=== PATIENT | male | born 2000 | race Caucasian/White ===

== ENCOUNTER 2024-01-01 04:21 | Emergency (ER) | payer OTHER, SELFPAY ==
[2024-01-01 04:30] VITALS: BP 125/73; PULSE 96; RESP 16; TEMP 36.9; O2SAT 97
[2024-01-01] MEDS: HYDROcodone/acetaminophen (*CRX) 5-325 MG TABLET 1 TAB PO (05:15)
--- NOTE | 2024-01-01 05:39 | PC.NURSE ---
Irrigated pt left ear with no success. VORB per EDP Livan to do it one more time in 10 minnutes.
[2024-01-01 05:58] LABS: Influenza A QL RT-PCR Negative (Negative); Influenza B QL RT-PCR Negative (Negative); RSV RNA, RT-PCR Negative (Negative); SARS-CoV-2 RNA PCR Negative (Negative)
--- NOTE | 2024-01-01 06:20 | ED.EAR ---
HPI - Ear Problem General Chief complaint: Ear Stated complaint: bilateral ear pain Time Seen by Provider: 01/01/24 04:45 History of Present Illness HPI Narrative: Patient is a 23-year-old male who presents ER with left ear pain. Worsening over last couple of days. Difficulty hearing. Associated with sinus congestion. Has pain in his neck on left side as well. No fevers or chills or sweats. Related Data Allergies Allergy/AdvReac Type Severity Reaction Status Date / Time No Known Allergies Allergy Verified 01/01/24 05:18 Review of Systems Constitutional: Constitutional: Reports no additional constitutional complaints ENT: Denies dizziness, Reports nasal congestion and Reports sore throat Cardiovascular: Cardiovascular: Reports no additional cardiovascular complaints Neurologic: Reports system reviewed and no additional complaints, except as documented PMFSH Past Medical History Medical History (Updated 01/01/24 @ 06:45 by Omar Licona MD) Healthy adult male Surgical History Surgical History (Updated 01/01/24 @ 06:39 by Omar Licona MD) No pertinent past surgical history Exam Narrative: GENERAL: Well-appearing, well-nourished, and in no acute distress. HEAD: Normocephalic, atraumatic. ENT: Mucous membranes moist. Normal right ear canal and tympanic membrane. Left ear canal with cerumen impaction. After removal impaction TM is intact. Normal appearing posterior oropharynx. NECK: Supple. CHEST: Clear to auscultation. No respiratory distress. HEART: Regular rate and rhythm. Normal peripheral pulses. EXTREMITIES: Normal range of motion. No edema. NEURO: Alert and oriented x3. PSYCH: Normal mood and affect. Course Course Emergency Course: Tolerated cerumen removal. D/c. Vital Signs Vital signs: Vital Signs Temperature 98.4 F 01/01/24 04:30 Pulse Rate 96 01/01/24 04:30 Respiratory Rate 16 01/01/24 04:30 Blood Pressure 125/73 01/01/24 04:30 Pulse Oximetry 97 01/01/24 04:30 Temperature 98.4 F 01/01/24 04:30 Pulse Rate 96 01/01/24 04:30 Respiratory Rate 16 01/01/24 04:30 Blood Pressure 125/73 01/01/24 04:30 Pulse Oximetry 97 01/01/24 04:30 Procedures FB Removal Ear Foreign Body #1: Foreign Body Removal Date: 01/01/24 Foreign Body Removal Time: 06:24 Location: ear canal (L) Foreign Body Suspected: other (Cerumen) TM intact pre-procedure: unable to visualize Foreign Body Removal Technique: irrigation Tympanic Membrane Intact Post Procedure: Yes Patient Tolerated Procedure: well Complications: none Medical Decision Making Vital Signs Vital Signs: Vital Signs Temperature 98.4 F 01/01/24 04:30 Pulse Rate 96 01/01/24 04:30 Respiratory Rate 16 01/01/24 04:30 Blood Pressure 125/73 01/01/24 04:30 Pulse Oximetry 97 01/01/24 04:30 Temperature 98.4 F 01/01/24 04:30 Pulse Rate 96 01/01/24 04:30 Respiratory Rate 16 01/01/24 04:30 Blood Pressure 125/73 01/01/24 04:30 Pulse Oximetry 97 01/01/24 04:30 Lab Data Labs: Lab Results 01/01/24 Range/Units 05:16 Influenza A (RT-PCR) Negative (Negative) Influenza B (RT-PCR) Negative (Negative) RSV (RT-PCR) Negative (Negative) SARS-CoV-2 RNA (RT-PCR) Negative (Negative) Discharge Plan Discharge Clinical Impression: Cerumen impaction Patient Disposition: Home, Self-Care Condition: Stable Instructions: Ear Foreign Body (ED) Additional Instructions: You had a plug of wax removed from ear canal. Return the ER if you have worsening pain in your ear, you have fever over 100.4? F, or you have additional concerns. Prescriptions: New Ear Drops (carbamide peroxide) 6.5 % drops 5 drp LEFT EAR Q12H 4 Days Qty: 15 0RF Follow-up/Referrals: NON-NURSING STAFF,ADMISSIONS [Primary Care Provider] -
== END 2024-01-01 06:55 | disposition home or self-care (01) ==
PROVIDERS: Emergency Provider Emergency Medicine
DX: H61.22 Impacted cerumen, left ear (principal); Z20.822 Contact with and (suspected) exposure to COVID-19
CPT/HCPCS: 69209; 87637; 99283; A9270